=== PATIENT | male | born 1985 | race Hispanic/Latino ===

== ENCOUNTER 2020-06-16 11:56 | Outpatient (CLI) | payer OTHER ==
[2020-06-17 01:00] LABS: SARS-CoV-2 PCR by NAA Not Detected (NotDetected)
== END 2020-06-16 11:57 | disposition home or self-care (01) ==
LOC: LABBT 11:56
PROVIDERS: ATTEND Surgery
DX: Z01.812 Encounter for preprocedural laboratory examination (principal); R10.31 Right lower quadrant pain; Z20.822 Contact with and (suspected) exposure to COVID-19
CPT/HCPCS: 87635; U0003; U0005

== ENCOUNTER 2020-06-21 06:10 | Day surgery (SDC) | payer OTHER ==
[2020-06-18 09:42] VITALS: BMI 25.1
[2020-06-21] MEDS ORDERED: HYDROmorphone 0.5 MG/0.5 ML SYRINGE ONE (06:13)
[2020-06-21] MEDS ORDERED: Fentanyl 100 MCG/2 ML VIAL ONE (06:13)
[2020-06-21] MEDS ORDERED: EPINEPHrine 1 MG/ML AMP ONE (06:41)
[2020-06-21] MEDS ORDERED: Bupivacaine 0.25% HCL 30 ML VIAL ONE (06:41)
[2020-06-21] MEDS ORDERED: Midazolam HCl 2 mg/2 ml Vial ONE (06:53)
[2020-06-21] MEDS ORDERED: Dexamethasone 20 MG/5 ML VIAL ONE (07:01)
[2020-06-21] MEDS ORDERED: Glycopyrrolate 0.2 MG/ML 5 ML SYRINGE ONE (07:01)
[2020-06-21] MEDS ORDERED: PROPOFOL 200 MG/20 ML VIAL ONE (07:01)
[2020-06-21] MEDS ORDERED: Lidocaine 1% PF 5 ML VIAL ONE (07:01)
[2020-06-21] MEDS ORDERED: Ondansetron PF 4 MG/2 ML Vial ONE (07:01)
[2020-06-21] MEDS ORDERED: Ketorolac Tromethamine 30 MG/ML VIAL ONE (07:01)
[2020-06-21] MEDS ORDERED: Rocuronium Bromide 10 MG/ML (10ML VIAL) ONE (07:01)
[2020-06-21] MEDS ORDERED: HYDROcodone/Acetaminophen 5/325 mg Tablet ONE (09:36)
[2020-06-21] MEDS ORDERED: Ondansetron ODT 4 MG TAB ONE (10:21)
== END 2020-06-21 10:30 | disposition home or self-care (01) ==
LOC: SDC 06:10
PROVIDERS: ATTEND Surgery
PROC: 0YU54JZ Supplement Right Inguinal Region with Synthetic Substitute, Percutaneous Endoscopic Approach (ICD-10-PCS; principal; 2020-06-21)
DX: K40.90 Unilateral inguinal hernia, without obstruction or gangrene, not specified as recurrent (principal); D17.6 Benign lipomatous neoplasm of spermatic cord; J30.2 Other seasonal allergic rhinitis
CPT/HCPCS: C1781; J0171; J0690; J1100; J1170; J1885; J2250; J2405; J2704; J3010; Q0162; S0020